=== PATIENT | male | born 2000 | race African-American/Black ===

== ENCOUNTER 2025-03-24 11:29 | Emergency (ER) | payer OTHER ==
[~2025-03-24] VITALS: Ht 177.8 cm; Wt 96.8 kg
[~2025-03-24 11:29] MED LIST: IBUP600T42 PO; NOXI1TAB PO; ONDA-282 PO
[2025-03-24 12:09] LABS: BASO # 0.0 10^3/uL (0.0-0.2); BASO % 0.4 % (0.0-1.0); EOS # 0.1 10^3/uL (0.0-0.5); EOS % 1.1 % (0.0-3.0); LYMPH # 2.1 10^3/uL (1.5-5.0); LYMPH % 18.7 % (24.0-44.0); MONO # 0.6 10^3/uL (0.0-0.8); MONO % 5.4 % (2.0-8.0); NEUTROPHILS # 8.2 10^3/uL (1.5-8.5); NEUTROPHILS % 74.0 % (36.0-66.0); PLATELET COUNT, AUTOMATED 311 10^3/uL (150-450)
[2025-03-24 12:30] LABS: CK-MB VALUE MASS 3.1 NG/ML (<3.6)
[2025-03-24 12:31] LABS: CALCIUM LEVEL 10.1 MG/DL (8.5-10.1); CARBON DIOXIDE LEVEL 26 MMOL/L (20-31); CHLORIDE LEVEL 105 MMOL/L (98-107); CREATININE FOR GFR 1.13 MG/DL (0.70-1.30); GLOMERULAR FILTRATION RATE > 90.0 (>60); POTASSIUM SERUM 4.4 MMOL/L (3.5-5.1); SODIUM LEVEL 141 MMOL/L (136-145)
[2025-03-24 12:33] LABS: CPK CREATINE PHOSPHOKINASE 435 U/L (46-171); MB/CK RELATIVE INDEX 0.71 (< OR =4)
[2025-03-24 13:46] LABS: CK-MB VALUE MASS 2.9 NG/ML (<3.6)
[2025-03-24 13:54] LABS: CPK CREATINE PHOSPHOKINASE 435.0 U/L (46-171); MB/CK RELATIVE INDEX 0.66 (< OR =4)
[2025-03-24 16:05] LABS: CK-MB VALUE MASS 3.1 NG/ML (<3.6)
[2025-03-24 16:14] LABS: CPK CREATINE PHOSPHOKINASE 442.0 U/L (46-171); MB/CK RELATIVE INDEX 0.7 (< OR =4)
[2025-03-24] MEDS: ONDANSETRON 4MG/2ML VIAL IV ONE (16:47)
[2025-03-24] MEDS: MORPHINE 4 MG/ML 1 ML VIAL IV PRN (16:47)
[2025-03-24] MEDS ORDERED: ISOVUE-370 76% 100 ML VIAL As Ordered ONE (18:20)
[2025-03-24 19:49] VITALS: BP 130/61; TEMP 96.9; O2SAT 97
== END 2025-03-24 19:59 | disposition left against medical advice (07) ==
LOC: M ED 11:29
DX: R07.9 Chest pain, unspecified (principal); R79.89 Other specified abnormal findings of blood chemistry; Z53.9 Procedure and treatment not carried out, unspecified reason
CPT/HCPCS: 70450; 70544; 70551; 71046; 71275; 80048; 82550; 82553; 84484; 85025; 93005; 96374; 99285; J2405; Q9967

== ENCOUNTER 2025-04-01 06:42 | Emergency (ER) | payer OTHER ==
[~2025-04-01] VITALS: Ht 180.3 cm; Wt 88.9 kg
[2025-04-01] MEDS ORDERED: ISOVUE-370 76% 100 ML VIAL As Ordered ONE (08:06)
[2025-04-01] MEDS ORDERED: HOME MED LIST COMPLETE! XX SCH (10:55)
[2025-04-01 11:53] VITALS: BP 129/64; TEMP 97.9; O2SAT 100
== END 2025-04-01 12:00 | disposition home or self-care (01) ==
LOC: M ED 06:42
DX: R20.9 Unspecified disturbances of skin sensation (principal); M79.601 Pain in right arm
CPT/HCPCS: 72141; 73206; 99284; Q9967

== ENCOUNTER → 2025-04-20 | Outpatient (CLI) | payer OTHER | LOC: M PLAIMG 09:14 | PROVIDERS: ATTEND Physician Assistant | DX: R06.00 Dyspnea, unspecified (principal) ==

== ENCOUNTER → 2025-05-03 | Outpatient (CLI) | payer OTHER | LOC: M CARPUL 13:02 | PROVIDERS: ATTEND Physician Assistant | DX: R06.00 Dyspnea, unspecified (principal) ==